=== PATIENT | female | born 1945 | race Caucasian/White ===

== ENCOUNTER 2023-06-13 09:57 | Observation (INO) ==
[~2023-06-13 09:57] MED LIST: Dexamethasone IV 4 MG/ML VIAL 1 ml VIAL ONE; HYDROmorphone 1 MG/1 ML SYRINGE IV PRN; Midazolam 2 mg/2 ml VIAL 1 mg/ml 2 ml VIAL (2 mg) ONE; Naloxone 0.4 mg VIAL 0.4 mg/ml 1 ml VIAL IV PRN; Ondansetron 4 mg VIAL 2 MG/ML 2 ml VIAL IV PRN; Ondansetron 4 mg VIAL 2 MG/ML 2 ml VIAL ONE; Phenylephrine IV 10 MG/ML 1 ml VIAL ONE; Sterile Water for Inj 10 ML ONE; fentaNYL 100 mcg/2 ml 50 MCG/ML VIAL ONE
[2023-06-13] MEDS ORDERED: Tranexamic Acid 1 GM/100ML BAG 2,000 MG/200 ML BAG IV ONE (10:58)
[2023-06-13] MEDS ORDERED: ceFAZolin 2 GM in NS PREMIX 2 GM/100 ML BAG IVPB ONE (10:58)
[2023-06-13 11:04] LABS: Rapid COVID-19 Molecular Undetected (Undetected)
[2023-06-13] MEDS ORDERED: Dexamethasone IV 4 MG/ML VIAL 1 ml VIAL ONE (11:35)
[2023-06-13] MEDS ORDERED: Midazolam 2 mg/2 ml VIAL 1 mg/ml 2 ml VIAL (2 mg) ONE (11:35)
[2023-06-13] MEDS ORDERED: Buffered Lidocaine 1% SYRIN 1 ml INTRADERM ONE (11:38)
[2023-06-13] MEDS ORDERED: ROPIVACAINE 5 MG/ML 30 ML BTL (0.5%) ONE (11:41)
[2023-06-13] MEDS ORDERED: Lactated Ringers 1000 ml BAG 1,000 ML IV SCH (12:00)
[2023-06-13] MEDS ORDERED: Lidocaine 1% MPF 5 ML VIAL ONE (12:17)
[2023-06-13] MEDS ORDERED: Ropivacaine 5 MG/ML 20 ML VIAL 0.5% (100 MG) ONE (12:17)
[2023-06-13] MEDS ORDERED: Magnesium Hydroxide LIQ 30 ML UDC PO PRN (13:48)
[2023-06-13] MEDS ORDERED: Morphine 2 MG/ML SYRINGE IV PRN (13:48)
[2023-06-13] MEDS ORDERED: Ondansetron 4 mg VIAL 2 MG/ML 2 ml VIAL IV PRN (13:48)
[2023-06-13] MEDS ORDERED: Ondansetron ODT 4 mg TAB 4 MG TAB PO PRN (13:48)
[2023-06-13] MEDS ORDERED: Lactulose 30 ml UDC PO PRN (13:48)
[2023-06-13] MEDS ORDERED: Scopolamine 1 mg/72hr PATCH TRANSDERM PRN (13:53)
[2023-06-13] MEDS ORDERED: fentaNYL 100 mcg/2 ml 50 MCG/ML VIAL ONE (15:30)
[2023-06-13] MEDS: fentaNYL 100 mcg/2 ml 50 MCG/ML VIAL IV PRN ×3 (15:31→16:04)
[2023-06-13] MEDS ORDERED: Bupivacaine-MPF SPINAL 7.5 MG/ML - 2ML AMP ONE (15:36)
[2023-06-13] MEDS ORDERED: Meperidine 50 mg/ml SYRINGE 1 ml IV PRN (15:42)
[2023-06-13] MEDS: Lactated Ringers 1000 ml BAG 1,000 ML IV SCH (17:52)
[2023-06-13] MEDS: Magnesium Hydroxide LIQ 30 ML UDC PO SCH (20:03)
[2023-06-13] MEDS: ceFAZolin 1 GM ADVAN 1 GM in NS 0.9% 50 ML 50 ML IVPB SCH (20:57)
[2023-06-14] MEDS: Lactated Ringers 1000 ml BAG 1,000 ML IV SCH (04:13)
[2023-06-14] MEDS: ceFAZolin 1 GM ADVAN 1 GM in NS 0.9% 50 ML 50 ML IVPB SCH ×2 (04:56→12:29)
[2023-06-14 06:35] LABS: Platelet Count 344 10^3/uL (150-450)
[2023-06-14 06:56] LABS: Hematocrit 33.3 % (35-45); Mean Platelet Volume 9.1 fL (7.5-11.2)
[2023-06-14 07:01] LABS: Calcium 8.4 mg/dL (8.6-10.3); Creatinine, Serum 0.68 mg/dL (0.51-0.95); eGFR CKD-EPI 90.2 (>60)
[2023-06-14] MEDS: Magnesium Hydroxide LIQ 30 ML UDC PO SCH (07:51)
[2023-06-14] MEDS ORDERED: Vitamin THERAPEUTIC TAB PO SCH (09:00)
[2023-06-14 10:05] VITALS: BP 106/53
== END 2023-06-14 14:45 | disposition home or self-care (01) ==
LOC: AA 09:57 → INTOOBSV 09:57 → SSU 13:48
PROVIDERS: ADMIT Orthopaedic Surgery Adult Reconstructive Orthopaedic Surgery; ATTEND Orthopaedic Surgery Adult Reconstructive Orthopaedic Surgery